=== PATIENT | male | born 1955 | race Two or more races ===

== ENCOUNTER 2017-09-03 09:46 | Emergency (ER) | payer OTHER ==
[~2017-09-03] VITALS: Ht 175.3 cm; Wt 85.7 kg
--- NOTE | 2017-09-03 09:52 | NUR ---
PT JIL FROM HOME WFOR N/V AND WEAKNESS. IV ACCESS OIL EXTRACTOR. ZOFRAN GIVEN ON THE FIELD. AT BS FOR EVAL. VSS. SAFETY AND COM FORT MEASURES PROVIDED. WILL MONITOR.
[2017-09-03] MEDS ORDERED: MECLIZINE HCL 25 MG TABLET ONE ×2 (09:57→10:22)
[2017-09-03] MEDS ORDERED: IV NS 0.9% 500 ML BAG IV ONE (10:00)
[2017-09-03] MEDS ORDERED: MECLIZINE HCL 12.5 MG TABLET PO ONE ×2 (10:00→10:30)
--- NOTE | 2017-09-03 10:00 | NUR ---
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
--- NOTE | 2017-09-03 10:04 | NUR ---
PT TAKEN TO CT.
[2017-09-03 10:08] LABS: BASOPHILS % (AUTO) 0.4 % (0.0-2.0); EOSINOPHILS % (AUTO) 0.1 % (0.0-6.0); HEMATOCRIT 47 % (39-51); HEMOGLOBIN 15.6 g/dL (13.5-17.5); LYMPHOCYTES # (AUTO) 1.3 /CMM (0.8-4.8); MEAN CORPUSCULAR HEMOGLOBIN 30 PG (26.0-33.0); MEAN CORPUSCULAR HGB CONC 33 g/dl (31.0-36.0); MEAN CORPUSCULAR VOLUME 90 fL (80-96); MONOCYTES # (AUTO) 0.4 /CMM (0.1-1.30); MONOCYTES % (AUTO) 4.4 % (2.0-12.0); NEUTROPHILS # (AUTO) 7.8 /CMM (1.8-8.9); NEUTROPHILS % (AUTO) 81.1 % (43.0-81.0); PLATELET COUNT (AUTO) 179 /CMM (150-450); RDW COEFFICIENT OF VARIATION 15.1 (11.5-15.0); RED BLOOD CELL COUNT(AUTO) 5.28 MIL/uL (4.5-6.0); WHITE BLOOD COUNT (AUTO) 9.6 K/uL (4.3-11.0)
[2017-09-03] MEDS ORDERED: ONDANSETRON HCL/PF 4 MG/2 ML VIAL ONE (10:13)
[2017-09-03 10:19] LABS: CALCIUM, SERUM 8.9 mg/dL (8.5-10.1); CARBON DIOXIDE 29 mmol/L (21-32); CHLORIDE 104 mmol/L (98-107); GLUCOSE 130 mg/dL (74-106); POTASSIUM 4.2 mmol/L (3.5-5.1); SODIUM SERUM 141 mmol/L (136-145); UREA NITROGEN, BLOOD 15 mg/dL (7-18)
[2017-09-03 10:27] LABS: TROPONIN I < 0.017 ng/mL (0.00-0.056)
[2017-09-03] MEDS ORDERED: ONDANSETRON HCL/PF 4 MG/2 ML VIAL IVP ONE (10:30)
--- NOTE | 2017-09-03 10:50 | NUR ---
PT WANTS TO HOLD OFF IN TAKING THE ORDERED ANTIVERT. MADE AWARE.
--- NOTE | 2017-09-03 10:50 | NUR ---
IV removed. Catheter intact and site benign. Pressure and 4x4 applied to site. No bleeding noted.
--- NOTE | 2017-09-03 11:00 | NUR ---
Patient discharged to home in stable condition. Written and verbal after care instructions given. Patient verbalizes understanding of instruction.
[2017-09-03 11:55] VITALS: BP 136/87
== END 2017-09-03 11:56 | disposition home or self-care (01) ==
LOC: ER 09:49
DX: R42 Dizziness and giddiness (principal); E78.5 Hyperlipidemia, unspecified
CPT/HCPCS: 36415; 70450; 80048; 84484; 85025; 93005; 96374; 99285; A4606; J2405; J7040; J8597 ×2; Z7610